=== PATIENT | male | born 1965 | race Caucasian/White ===

== ENCOUNTER → 2016-10-26 | Outpatient (CLI) | payer OTHER ==
[~2016-10-26] VITALS: Ht 177.8 cm; Wt 93.0 kg
[~2016-10-26] MED LIST: CONTRAST GIVEN MC PRN; CYCL10TA2 PO; HYDR-2679 PO; IOHEXOL 180 MG/ML 10 ML VIAL. IT ONE; LORA1TAB PO; MULT-460 PO
[2016-10-26 07:26] VITALS: BP 143/88
--- NOTE | 2016-10-26 09:13 | RAD ---
Lumbar myelogram, 10/26/2016: History: Radiculopathy, spinal stenosis Under local anesthesia, aseptic conditions and fluoroscopic guidance a lumbar puncture was performed at the mid L3 level utilizing a 25-gauge for spinal needle. Good clear CSF flow was obtained following which 14 cc of Omnipaque 180 was injected into the thecal sac. The spinal needle was then removed and appropriate digital imaging performed. 2.0 minutes of fluoroscopy time was utilized. 11 fluoroscopic spot images were recorded. The following findings were delineated on the myelogram: 1. There are mild to moderate anterior extradural defects at all of the disc levels, most prominent at L4-5 and L5-S1. There are mild posterior extradural defects at L3-4 and L4-5. There is mild associated narrowing of the thecal sac at L3-4 and L4-5, measuring approximate 7 mm in AP diameter at both levels in the upright position. 2. No significant instability is seen on upright lateral flexion and extension views. 3. There is a mild extrinsic impression upon the proximal right L5 nerve root sleeve. There is otherwise symmetric opacification of the nerve root sleeves in the lower lumbar region. CT of the lumbar spine-post myelogram, 10/26/2016: Multidetector CT imaging was performed with multiplanar reconstructions produced. The following findings are delineated: 1. At L1-2 there is mild broad-based posterior disc bulging. The thecal sac and neural foramina are well maintained. 2. At L2-3 there is minimal posterior annular bulging. There are mild degenerative changes involving the facet joints. The central spinal canal and neural foramina are well maintained. 3. At L3-4 there is mild posterior disc bulging. There is mild posterior ligamentous thickening with minimal facet spurring. There is borderline narrowing of the central spinal canal with thecal sac measuring 10 mm in AP diameter at the midline. The neural foramina are well maintained. 4. At L4-5 there is mild to moderate broad-based posterior disc bulging. There are mild degenerative changes involving the facet joints. The thecal sac measures 10 mm in AP diameter at the midline. There is mild bilateral foraminal narrowing. 5. At L5-S1 there is a mild to moderate posterior disc protrusion, with slight inferior extension. The disc protrusion effaces the anterior epidural fat. This abuts the S1 nerve root sleeves bilaterally. There is mild associated foraminal encroachment, more so on the right. There are mild degenerative changes involving the facet joints. IMPRESSION: 1. Moderate multilevel degenerative change as described above.. 2. There is mild associated central spinal stenosis at L3-4 and L4-5 in the upright position. 3. Mild to moderate posterior disc protrusion at L5-S1. PQRS Compliance Statement: One or more of the following individualized dose reduction techniques were utilized for this examination: 1. Automated exposure control 2. Adjustment of the mA and/or kV according to patient size 3. Use of iterative reconstruction technique
== END | disposition home or self-care (01) ==
LOC: RAD 07:09
PROVIDERS: ATTEND Neurological Surgery
DX: M48.06 Spinal stenosis, lumbar region (principal); M51.27 Other intervertebral disc displacement, lumbosacral region; M51.17 Intervertebral disc disorders with radiculopathy, lumbosacral region; M51.16 Intervertebral disc disorders with radiculopathy, lumbar region
CPT/HCPCS: 72132; 72265

== ENCOUNTER → 2016-11-02 | Outpatient (CLI) | payer OTHER ==
[2016-10-26 07:26] VITALS: BP 143/88
[~2016-11-02] MED LIST changes: -CONTRAST GIVEN MC PRN; -IOHEXOL 180 MG/ML 10 ML VIAL. IT ONE; +IOHEXOL 180 MG/ML 10 ML VIAL. ONE; +methylPREDNISolone ACETATE 40 MG/ML VIAL. ONE; +methylPREDNISolone ACETATE 80 MG/ML VIAL. ONE
--- NOTE | 2016-11-03 10:13 | PAIN ---
DATE OF SERVICE: 11/02/2016 PROGRESS NOTE FOR PAIN CLINIC DIAGNOSES: Lumbar radiculopathy with lumbar degenerative disk disease and post-lumbar laminectomy syndrome. HISTORY OF PRESENT ILLNESS: The patient is a 51-year-old male who returns for followup status post caudal epidural steroid injections x 2. The patient was last seen on 11/04/2015. The patient did very well with these with approximately 65% improvement, but the pain is returning now over the past year and has been bothering for several months now. The patient reports it has been increasing in the low back and right lower extremity radiating in the posterior gluteus, posterior thigh to the upper calf and posterior knee on the right side with some heel and foot drop on the right side noticeable with standing and walking. It is worse with activity, also weakness in the right leg, aching, sharp, tight, radiating. There is also some restless leg type symptoms at night in the right leg, occasionally worse the longer he stands, the longer time on his feet, change in positions, it becomes more noticeable. The patient reports ____ 3 on a scale of 10, it is currently at 3 today. The patient reports no loss of motor function, but significant pain with activity and fatigability with the right leg. The patient has recently seen his neurosurgeon who is recommending conservative treatment and possibly L5 decompression if necessary in future. PAST MEDICAL HISTORY: Significant for tobacco chewing, arthritis. No major medical problems or conditions. PREVIOUS SURGERY: Include vasectomy and diskectomy with hemilaminectomy in 06/2015. TMJ surgery in 2001, lumbar microdiskectomy on the right at L5-S1 in 06/2015 and right knee scope in 2015 also. CURRENT MEDICATIONS: Updated and include ____ prednisolone, which he just finished and [id number] ibuprofen. FAMILY HISTORY: Unknown. SOCIAL HISTORY: The patient works as a chiropractor. He is , has 2 children. Smoking tobacco, chewing tobacco, drinks alcohol one to two times a month on average. ALLERGIES: The patient has no known drug allergies. REVIEW OF SYSTEMS: The patient's review of systems is positive for those items mentioned in the history of present illness, otherwise complete, full and well documented on the patient's chart. All systems reviewed and otherwise negative. PHYSICAL EXAMINATION: VITAL SIGNS: Today, the patient's blood pressure is 147/89, pulse is 55, respirations 18, temperature 98.2 degrees Fahrenheit, height is 5 feet 10 inches and weight is 202 pounds. GENERAL: The patient is awake, alert, oriented, appropriate, very pleasant demeanor. HEENT: Head shows normocephalic, atraumatic. The patient wears eye glasses. Extraocular movements are intact and symmetrical. Oral cavity shows mucous membranes moist and pink. Dentition is intact. NECK: Shows anterior throat supple without palpable lymphadenopathy noted. Swallow reflex is symmetrical. No lymphadenopathy noted. CHEST: Shows normal on inspection. Breath sounds are clear to auscultation bilaterally. HEART: Shows S1 and S2 clear. ABDOMEN: Soft, nontender, nondistended. No palpable organomegaly noted. No rebound or guarding demonstrated. BACK: Shows spine grossly midline. Well healed surgical scars noted in the lumbar distribution with well preserved lumbar lordotic curvature. Lumbar paraspinous musculature is normal and muscle girth is symmetrical without atrophy or hypertrophy noted. Palpation shows some mild tenderness with palpation in the lower lumbar distribution only, but only diffusely without radiation. No tenderness over the sacrum or sacroiliac regions. EXTREMITIES: Lower extremities show deep tendon reflexes 2+ in the patellar and tendo calcaneal tendons 1+. Motor exam is strong with 5/5 dorsiflexion, extension, quadriceps and hamstring flexion and equal. PLAN: Options were discussed with the patient and the patient's old chart was reviewed as his current medication regimen updated. Current review of systems updated as noted. We will plan on a caudal approach epidural steroid injection today with fluoroscopic guidance. Risks were again discussed including, but not limited to, bleeding, infection, possibility of epidural hematoma and subsequent neurologic compromise, dural puncture, headaches, spinal cord and/or nerve damage, side effects of steroid medication and poor results regarding pain control. The patient understands and wishes to proceed. The patient will return to clinic in approximately 2 weeks for followup. He was counseled as to return appointment, activity level and side effects to be aware of. DIAGNOSES: Lumbar radiculopathy with lumbar degenerative disk disease and post-lumbar laminectomy syndrome. PROCEDURE: Lumbar caudal approach epidural steroid injection using C-arm fluoroscopic guidance under sterile prep and drape using local anesthetic. MEDICATIONS INJECTED: A total of 120 mg of Depo-Medrol plus total of 10 mL of preservative-free normal saline and 2 mL of Isovue for contrast. CONDITION AT DISCHARGE: Stable. The patient tolerated procedure well, had no complications. ROBYN EMANUEL MD DR: [email or web address]/yudi JOB#: [id number] / [id number]
== END | disposition home or self-care (01) ==
LOC: PNCL 09:22
PROVIDERS: ATTEND Anesthesiology
DX: M51.16 Intervertebral disc disorders with radiculopathy, lumbar region (principal); M96.1 Postlaminectomy syndrome, not elsewhere classified; M19.90 Unspecified osteoarthritis, unspecified site; F17.200 Nicotine dependence, unspecified, uncomplicated; Z72.0 Tobacco use; Z72.89 Other problems related to lifestyle; Z86.69 Personal history of other diseases of the nervous system and sense organs; Z87.39 Personal history of other diseases of the musculoskeletal system and connective tissue
CPT/HCPCS: 62323; J1030; J1040

== ENCOUNTER → 2016-11-24 | Outpatient (CLI) | payer OTHER ==
[2016-10-26 07:26] VITALS: BP 143/88
[~2016-11-24] MED LIST changes: +ALPR0.254 PO
== END | disposition home or self-care (01) ==
LOC: PNCL 10:00
PROVIDERS: ATTEND Anesthesiology
DX: M51.16 Intervertebral disc disorders with radiculopathy, lumbar region (principal); Z86.69 Personal history of other diseases of the nervous system and sense organs; Z72.89 Other problems related to lifestyle
CPT/HCPCS: 62323; J1030; J1040